=== PATIENT | male | born 1955 | race Caucasian/White ===

== ENCOUNTER 2022-04-04 23:53 | Inpatient (IN) | payer OTHER ==
[~2022-04-04] VITALS: Ht 175.3 cm; Wt 78.4 kg
[2022-04-05 01:16] LABS: BASOPHILS ABSOLUTE AUTO 0.06 K/mm3 (0.00-0.23); BASOPHILS PERCENT AUTO 0 % (0-2); EOSINOPHILS ABSOLUTE AUTO 0.04 K/mm3 (0.00-0.68); EOSINOPHILS PERCENT AUTO 0 % (0-6); Hematocrit 44.8 % (37.0-53.0); Hemoglobin 15.5 g/dL (13.5-17.5); IMMATURE GRAN ABSOLUTE AUTO 0.07 K/mm3 (0.00-0.10); IMMATURE GRAN PERCENT AUTO 1 % (0-1); LYMPHOCYTES ABSOLUTE AUTO 1.69 K/mm3 (0.84-5.20); LYMPHOCYTES PERCENT AUTO 12 % (21-46); MONOCYTES ABSOLUTE AUTO 1.81 K/mm3 (0.16-1.47); MONOCYTES PERCENT AUTO 12 % (4-13); Mean Corpuscular HGB 31.2 pg (26.0-34.0); Mean Corpuscular HGB Conc 34.6 g/dL (31.5-36.5); Mean Corpuscular Volume 90 fL (80-100); Mean Platelet Volume 8.4 fL (9.1-12.4); NEUTROPHILS ABSOLUTE AUTO 10.99 K/mm3 (1.96-9.15); NEUTROPHILS PERCENT AUTO 75 % (41-73); Platelet Count 376 K/mm3 (150-400); RDW Coefficient Variation 11.9 % (11.7-14.2); RDW Standard Deviation 39.7 fL (35.1-46.3); Red Blood Cell Count 4.97 M/mm3 (4.30-5.90); White Blood Cell Count 14.66 K/mm3 (4.00-11.30)
[2022-04-05 01:30] LABS: Bun/Creatinine Ratio 21.2 (12.0-20.0); Creatinine, Blood 0.94 mg/dL (0.60-1.20); Potassium, Blood 4.3 mmol/L (3.5-5.5)
--- NOTE | 2022-04-05 06:27 | NUR ---
SHIFT SUMMARY/ASSUMPTION OF CARE PT ARRIVED TO UNIT AT 0545. HR STABLE. BP STABLE. OXYGEN SATURATION CURRENLTY 90% ON RA. PT CURRENLTY ON 2 L VIA NC. OXYGEN SATURATION 95%. PT HAVING LARGE AMOUNT OF SECRETIONS. SUCTION AT BEDSIDE. NO CP OR PRESSURE. SBA. ABLE TO TURN SELF IN BED. ALERT AND ORIENTED X 4. CONSULT CALLED INTO DR. MAHER. CALL LIGHT WITHIN REACH. WILL CONT TO MONITOR UNTIL REPORT GIVEN TO [facility].
[2022-04-05 06:35] LABS: BASOPHILS ABSOLUTE AUTO 0.04 K/mm3 (0.00-0.23); BASOPHILS PERCENT AUTO 0 % (0-2); EOSINOPHILS ABSOLUTE AUTO 0.03 K/mm3 (0.00-0.68); EOSINOPHILS PERCENT AUTO 0 % (0-6); Hematocrit 45.4 % (37.0-53.0); Hemoglobin 15.6 g/dL (13.5-17.5); IMMATURE GRAN ABSOLUTE AUTO 0.05 K/mm3 (0.00-0.10); IMMATURE GRAN PERCENT AUTO 0 % (0-1); LYMPHOCYTES ABSOLUTE AUTO 1.27 K/mm3 (0.84-5.20); LYMPHOCYTES PERCENT AUTO 9 % (21-46); MONOCYTES ABSOLUTE AUTO 1.27 K/mm3 (0.16-1.47); MONOCYTES PERCENT AUTO 9 % (4-13); Mean Corpuscular HGB 31.3 pg (26.0-34.0); Mean Corpuscular HGB Conc 34.4 g/dL (31.5-36.5); Mean Corpuscular Volume 91 fL (80-100); Mean Platelet Volume 8.6 fL (9.1-12.4); NEUTROPHILS ABSOLUTE AUTO 11.65 K/mm3 (1.96-9.15); NEUTROPHILS PERCENT AUTO 81 % (41-73); Platelet Count 355 K/mm3 (150-400); RDW Standard Deviation 40.1 fL (35.1-46.3); Red Blood Cell Count 4.99 M/mm3 (4.30-5.90); White Blood Cell Count 14.31 K/mm3 (4.00-11.30)
--- NOTE | 2022-04-05 11:00 | NUR ---
Assumed Care of Patient: Pt resting in bed. VSS. LS clear. HR reg. BT positive. Pt does have noticeable swelling to throat, states that he thinks it is improving. Pt having secretions that are coming from throat. Suction at bedside. Pt does not place yanker to back of throat, just suctions front of mouth. Pt O2 off at this time and bIox >90%. Will continue to monitor. Call light in reach.
--- NOTE | 2022-04-05 14:45 | NUR ---
Update: Dr Mora to saw patient. Laryngoscopy was done at bedside. No issues. Pt denies needs at this time. Call light in reach. Will monitor.
--- NOTE | 2022-04-05 16:20 | NUR ---
THIS RN TO TAKE OVER FOR KELLEY VILLA AT THIS TIME. PATIENT RESTING IN BED. DENIES NEEDS. ALERT AND ORIENTED. LUNGS SOUNDING CLEAR. ON ROOM AIR SATING LOW 90'S. DENIES SOB. INCREASED SECRETIONS, SUCTION AT BEDSIDE. HR 90'S. DENIES CHEST PAIN/PRESSURE. FULL LIQUID DIET AND ADVANCE TOLERATED. NECK EDEMATOUS AND FIRMER ON RIGHT SIDE, DENIES PAIN WITH PALPATION. PATIENT STATES HE IS FEELING BETTER AND THAT SWELLING HAS OVERALL GONE DOWN. LR X1 BAG INFUSING AT THIS TIME. USING URINAL AT BEDSIDE. CONTINUOUS SPO2 MONITORING. CALL LIGHT IN REACH. WILL CONTINUE TO MONITOR.
--- NOTE | 2022-04-05 17:56 | NUR ---
SHIFT SUMMARY: NO ACUTE CHANGES SINCE PREVIOUS NOTE. REMAINS ON ROOM AIR. STATES SECRETIONS ARE DECREASING, SUCTION REMAINS AT BEDSIDE. ANTIBIOTICS INFUSING. LR X1 BAG INFUSED. EATING FULL LIQUID DIET AT THIS TIME. DENIES SWALLOWING ISSUES. DENIES PAIN, STATES HE HAS SCRATCHY THROAT. VITAL SIGNS STABLE. CALL LIGHT IN REACH.
--- NOTE | 2022-04-06 06:34 | NUR ---
SHIFT SUMMARY PT ALERT AND ORIENTED X 4. IND IN ROOM. NO ACUTE CHANGES T/O SHIFT. OXYGEN SATURATION MAINTAINED ABOVE 94% ON 2 L VIA NC WHILE SLEEPING. HR STABLE. BP STABLE. NO CP OR PRESSURE. PT REPORTS TO "FEEL BETTER THIS AM." CALL LIGHT WITHIN REACH. WILL CONT TO MONITOR UNTIL REPORT GIVEN TO DAYSHIFT RN.
--- NOTE | 2022-04-06 06:59 | NUR ---
[facility] DOWN AND CHARTS/ORDERS NOT ACCESSIBLE FROM 1190 - [id number] 04/05/22
--- NOTE | 2022-04-06 09:18 | NUR ---
AM NOTE: PATIENT ALERT AND ORIENTED. SEEMS TO BE ANXIOUS AND RESTLESS IN BED. DENIES NUMBNESS/TINGLING. DENIES HEADACHE/DIZZINESS. ON ROOM AIR - 2L NASAL CANNULA SATING LOW-MID 90'S. NECK/THROAT SWELLING DECREASED AND IMPROVING. DENIES PAIN. NO TENDERNESS UPON PALPATION. DIET ADVANCED TO MECH SOFT. ABLE TO SWALLOW PROBIOTIC PILL. LUNGS SOUNDING CLEAR AND DIM. SUCTION AT BEDSIDE. NO TELE. DENIES CHEST PAIN/PRESSURE. HR 80-90'S. BP STABLE. DENIES ABDOMINAL PAIN/NAUSEA. USING URINAL TO VOID. LOVENOX ORDERED THIS AM BY DR. OROZCO. PATIENT APPREHENSIVE ABOUT IT. THIS RN EDUCATED ON MEDICATION AND PATIENT WANTING TO WAIT UNTIL DR. OROZCO ROUNDS TO TAKE LOVENOX. DENIES NEEDS AT THIS TIME. CALL LIGHT IN REACH. WILL CONTINUE TO MONITOR.
--- NOTE | 2022-04-06 18:20 | NUR ---
SHIFT SUMMARY: NO ACUTE CHANGES. IV ANTIBIOTICS INFUSED. SUCTION AT BEDSIDE. SWELLING IMPROVED. PATIENT DOING WELL WITH [facility] SOFT DIET. DRINKING TEA AND WATER THROUGHOUT DAY. VITAL SIGNS REMAINS STABLE. ON ROOM AIR -2L NASAL CANNULA. DENIES NEEDS AT THIS TIME. WILL CONTINUE TO MONITOR AND REPORT OFF. CALL LIGHT IN REACH.
[2022-04-07 04:47] LABS: BASOPHILS ABSOLUTE AUTO 0.01 K/mm3 (0.00-0.23); BASOPHILS PERCENT AUTO 0 % (0-2); EOSINOPHILS ABSOLUTE AUTO 0.01 K/mm3 (0.00-0.68); EOSINOPHILS PERCENT AUTO 0 % (0-6); Hematocrit 43.6 % (37.0-53.0); Hemoglobin 14.9 g/dL (13.5-17.5); IMMATURE GRAN ABSOLUTE AUTO 0.15 K/mm3 (0.00-0.10); IMMATURE GRAN PERCENT AUTO 1 % (0-1); LYMPHOCYTES ABSOLUTE AUTO 1.36 K/mm3 (0.84-5.20); LYMPHOCYTES PERCENT AUTO 7 % (21-46); MONOCYTES ABSOLUTE AUTO 0.88 K/mm3 (0.16-1.47); MONOCYTES PERCENT AUTO 5 % (4-13); Mean Corpuscular HGB 30.9 pg (26.0-34.0); Mean Corpuscular HGB Conc 34.2 g/dL (31.5-36.5); Mean Corpuscular Volume 91 fL (80-100); Mean Platelet Volume 8.8 fL (9.1-12.4); NEUTROPHILS ABSOLUTE AUTO 16.88 K/mm3 (1.96-9.15); NEUTROPHILS PERCENT AUTO 87 % (41-73); Platelet Count 443 K/mm3 (150-400); RDW Coefficient Variation 11.9 % (11.7-14.2); RDW Standard Deviation 39.1 fL (35.1-46.3); Red Blood Cell Count 4.82 M/mm3 (4.30-5.90); White Blood Cell Count 19.29 K/mm3 (4.00-11.30)
--- NOTE | 2022-04-07 05:28 | NUR ---
SHIFT SUMMARY NO ACUTE CHANGES T/O SHIFT. VSS. ATTEMPTED TO TITRATE O2, PT DESATS DOWN TO 89%. OXYGEN SATURATION MAINTAINED ABOVE 92% ON 2 L VIA NC. HR STABLE. BP STABLE. NO CP OR PRESSURE. PT REPORTS NO DIFFICULTY SWALLOWING. CALL LIGHT WITHIN REACH. WILL CONT TO MONITOR UNTIL REPORT GIVEN TO DAYSHIFT RN.
[2022-04-07] MEDS ORDERED: VISBIOME 112.51 EACH PO (12:21)
[2022-04-07] MEDS ORDERED: AMOCLA875 PO (12:21)
--- NOTE | 2022-04-07 13:06 | NUR ---
DISCHARGE SUMMARY PT WALKED OUT OF BUILDING ACCOMPANIED BY FAMILY MEMBER. ALL PERSONAL BELONGINGS AND DISCHARGE INSTRUCTIONS WERE IN THE PT'S POSSESSION AT THE TIME OF DISCAHRGE. PT HAD NO QUESTIONS OR CONCERNS TO BE ADDRESSED.
== END 2022-04-07 12:40 | disposition home or self-care (01) | DRG 872 ==
LOC: ER 23:53 → PCU 23:54
PROVIDERS: Family Medicine; Internal Medicine; Student in an Organized Health Care Education/Training Program; ADMIT Internal Medicine
DX: A41.9 Sepsis, unspecified organism (principal); J05.10 Acute epiglottitis without obstruction; L02.11 Cutaneous abscess of neck; F17.210 Nicotine dependence, cigarettes, uncomplicated; Z71.6 Tobacco abuse counseling; Z98.890 Other specified postprocedural states
CPT/HCPCS: 36415; 70491; 80048; 85025; 96361; 96365; 96366; 96367; 96375; 96376; 99285; A9270; G0378; J0295; J1100; J2930; J3370; J7060; J7120; Q9967

== ENCOUNTER 2023-02-09 20:46 | Emergency (ER) | payer MEDICARE, OTHER ==
[~2023-02-09] VITALS: Ht 177.8 cm; Wt 77.1 kg
[~2023-02-09 20:46] MED LIST: AMOCLA875 PO; VISBIOME 112.51 EACH PO
[2023-02-09 21:06] VITALS: BP 149/88
== END 2023-02-10 00:13 | disposition home or self-care (01) ==
LOC: ER 20:46
DX: H16.001 Unspecified corneal ulcer, right eye (principal)
CPT/HCPCS: 99282; A9270